=== PATIENT | female | born 1955 | race Caucasian/White ===

== ENCOUNTER 2020-05-29 06:35 | Day surgery (SDC) | payer OTHER ==
[~2020-05-29] VITALS: Ht 152.4 cm; Wt 49.5 kg
[~2020-05-29 06:35] MED LIST: SODIUM CHLORIDE 0.9% 1,000 ML IV ONE
[2020-05-29 07:22] LABS: COVID AG,FIA SOURCE NASOPHARYNGEAL
[2020-05-29] MEDS ORDERED: FentaNYL CITRATE-PF 100 MCG/2 ML VIAL ONE (07:31)
[2020-05-29] MEDS ORDERED: MIDAZOLAM HCL 2 MG/2 ML VIAL ONE (07:31)
[2020-05-29] MEDS ORDERED: MethylPREDNISolone SOD SUCC 125 MG/2 ML VIAL IVP ONE (09:00)
[2020-05-29] MEDS ORDERED: MethylPREDNISolone SOD SUCC 125 MG/2 ML VIAL ONE (09:20)
[2020-05-29] MEDS ORDERED: BENZOCAINE 20% 50 MCG/SPRAY 57 GM ONE (17:49)
[2020-05-29] MEDS ORDERED: ALBUTEROL SULFATE 2.5 MG/0.5 ML NEB SOLUTION NEB ONE (17:49)
[2020-05-29] MEDS ORDERED: LIDOCAINE 2% 30 ML JELLY ONE (17:49)
[2020-05-29] MEDS ORDERED: LIDOCAINE 4% 50 ML SOLUTION ONE (17:49)
[2020-05-29] MEDS ORDERED: OXYGEN THERAPY IH SCH (20:00)
== END 2020-05-29 10:30 | disposition home or self-care (01) ==
LOC: SURGERY 06:35 → EDSEX 09:00 → SURGERY 10:30
PROVIDERS: ATTEND Internal Medicine Critical Care Medicine
DX: B37.0 Candidal stomatitis (principal); J38.4 Edema of larynx
CPT/HCPCS: 31623; 31624; 71045; 87015; 87070; 87101; 87205; 87206; 87220; 87426; J2250; J2930; J3010; 88108; 88312; J7613; Z7610

== ENCOUNTER 2021-04-16 06:07 | Day surgery (SDC) | payer OTHER ==
[2021-04-13 11:51] LABS: COVID AG,FIA SOURCE NASOPHARYNGEAL
[~2021-04-16] VITALS: Ht 157.5 cm; Wt 50.0 kg
[2021-04-16] MEDS ORDERED: SODIUM CHLORIDE 0.9% 1,000 ML IV ONE (06:30)
[2021-04-16] MEDS ORDERED: FAMO20 PO (07:56)
[2021-04-16] MEDS ORDERED: ASCO500 PO (07:56)
[2021-04-16] MEDS ORDERED: PRAV40TA3 PO (07:56)
[2021-04-16] MEDS ORDERED: MONT-35 PO (07:56)
[2021-04-16] MEDS ORDERED: CHOL-35 PO (07:56)
[2021-04-16] MEDS ORDERED: CALC-795 PO (07:56)
[2021-04-16] MEDS ORDERED: MIDAZOLAM HCL 5 MG/ML VIAL ONE (08:04)
[2021-04-16] MEDS ORDERED: FentaNYL CITRATE PF 100 MCG/2 ML VIAL ONE (08:04)
[2021-04-16] MEDS ORDERED: MethylPREDNISolone SOD SUCC 125 MG/2 ML VIAL ONE (08:57)
[2021-04-16] MEDS ORDERED: MethylPREDNISolone SOD SUCC 125 MG/2 ML VIAL IVP ONE (09:00)
[2021-04-16] MEDS ORDERED: OXYGEN THERAPY IH SCH (20:00)
== END 2021-04-16 10:46 | disposition home or self-care (01) ==
LOC: SURGERY 06:07
PROVIDERS: ATTEND Internal Medicine Critical Care Medicine
DX: J38.4 Edema of larynx (principal); B37.0 Candidal stomatitis; I10 Essential (primary) hypertension; Z98.890 Other specified postprocedural states; Z79.899 Other long term (current) drug therapy
CPT/HCPCS: 31623; 31624; 71045; 87015; 87070; 87101; 87205; 87206; 87220; 87426; 88108; 88184; 88185; 88312; C9803; J2250; J2930; J3010